=== PATIENT | female | born 1940 | race Caucasian/White ===

== ENCOUNTER 2023-09-12 17:07 | Inpatient (IN) | payer BC, OTHER ==
[~2023-09-12] VITALS: Ht 157.5 cm; Wt 83.9 kg
[2023-09-12] MEDS: IV NS 1000 ML 1,000 ML IV ONE (17:30)
[2023-09-12] MEDS: ONDANSETRON 4 MG/2 ML VIAL IV ONE (17:30)
[2023-09-12 18:29] LABS: BASOPHILS % (AUTO) 0.2 % (0.0-2.0); EOSINOPHILS # (AUTO) 0.3 K/uL (0.0-0.7); EOSINOPHILS % (AUTO) 2.2 % (0.0-7.0); HEMATOCRIT 51.7 % (31.2-41.9); HEMOGLOBIN 16.7 g/dL (10.9-14.3); LYMPHOCYTES # (AUTO) 1.3 K/uL (0.8-4.8); LYMPHOCYTES % (AUTO) 8.5 % (20.5-51.5); MEAN CORPUSCULAR HEMOGLOBIN 29.6 uug (24.7-32.8); MEAN CORPUSCULAR HGB CONC 32 g/dL (32.3-35.6); MEAN CORPUSCULAR VOLUME 91.7 fL (75.5-95.3); MONOCYTES # (AUTO) 1.1 K/uL (0.1-1.30); MONOCYTES % (AUTO) 7.2 % (0.0-11.0); NEUTROPHILS # (AUTO) 12.8 K/uL (1.8-8.9); NEUTROPHILS % (AUTO) 81.9 % (38.5-71.5); PLATELET COUNT (AUTO) 249 K/uL (179-408); RED BLOOD CELL COUNT(AUTO) 5.64 MIL/uL (3.63-4.92); WHITE BLOOD COUNT (AUTO) 15.6 K/uL (3.8-11.8)
[2023-09-12 18:30] LABS: DIFFERENTIAL COMMENT 1
[2023-09-12 18:37] LABS: CALCIUM 9.3 mg/dL (8.5-10.1); CARBON DIOXIDE 24 mmol/L (21-32); CHLORIDE 100 mmol/L (98-107); CREATININE 1.5 mg/dL (0.6-1.3); GLUCOSE 195 mg/dL (74-106); POTASSIUM 5.2 mmol/L (3.5-5.1); SODIUM SERUM 137 mmol/L (136-145); UREA NITROGEN, BLOOD 26 mg/dL (7-18)
[2023-09-12 18:51] LABS: ALANINE AMINOTRANSFERASE 50 U/L (14-59); ALBUMIN 4.3 g/dL (3.4-5.0); ALKALINE PHOSPHATASE 76 U/L (50-136); ASPARTATE AMINOTRANSFERASE 38 U/L (15-37); LIPASE 40 U/L (16-77); NT-PRO BNP 166 pg/mL (0-125); TOTAL PROTEIN, SERUM 9.4 g/dL (6.4-8.2)
[2023-09-12] MEDS ORDERED: ONDANSETRON 4 MG/2 ML VIAL ONE (18:53)
[2023-09-12 19:14] LABS: LACTIC ACID 3.1 mmol/L (0.4-2.0)
[2023-09-12] MEDS ORDERED: IOHEXOL 350 100 ML INFUS..BTL ONE (19:38)
[2023-09-12] MEDS ORDERED: SWABABLE VALVE TRANSFER SET EA MC ONE (19:39)
[2023-09-12] MEDS ORDERED: IV NORMAL SALINE 250 ML IV ONE (19:39)
[2023-09-12] MEDS: LORAZEPAM 2 MG/1 ML VIAL IV ONE (20:29)
[2023-09-12] MEDS: IV NORMAL SALINE 1000 ML BAG IV ONE (21:10)
[2023-09-12] MEDS ORDERED: levoFLOXacin 250MG /D5W 50 ML IV ONE (21:18)
[2023-09-12] MEDS ORDERED: levoFLOXacin 500 MG/D5W 100 ML ONE (21:25)
[2023-09-12] MEDS: levoFLOXacin 750 MG/D5W 150 ML PIGGYBACK IV ONE (21:26)
[2023-09-12] MEDS ORDERED: HYDROCODONE/APAP 5-325MG TABLET PO PRN (22:45)
[2023-09-12] MEDS ORDERED: ACETAMINOPHEN 325 MG TABLET PO PRN (22:45)
[2023-09-12] MEDS ORDERED: ACETAMINOPHEN 650 MG SUPP.RECT RC PRN (22:45)
[2023-09-12] MEDS ORDERED: ONDANSETRON 4 MG/2 ML VIAL IV PRN (22:45)
[2023-09-13] VITALS (8 sets, daily range): BP systolic 110–140; BP diastolic 41–81; TEMP 97.3–98.6; O2SAT 93–98
[2023-09-13] MEDS: IV NS 1000 ML 1,000 ML IV PRN (01:03)
[2023-09-13] MEDS ORDERED: VANCOMYCIN IV 200 ML ONE (01:29)
[2023-09-13] MEDS ORDERED: PIPERACILLIN/TAZOBACTAM/D5W 50 ML IV ONE (01:30)
[2023-09-13] MEDS: PIPERACILLIN SODIUM/TAZOBACTAM 3.375 G in IV DEXTROSE 5% 50 ML IV SCH ×2 (02:15→14:46)
[2023-09-13] MEDS ORDERED: GABA-532 PO (02:44)
[2023-09-13] MEDS: VANCOMYCIN IV 1,000 MG in IV NORMAL SALINE 250 ML IV ONE (03:05)
[2023-09-13] MEDS ORDERED: SIMV-46 PO (03:45)
[2023-09-13] MEDS ORDERED: PRIM50TA27 PO (03:45)
[2023-09-13] MEDS ORDERED: MECL-159 PO (03:45)
[2023-09-13] MEDS ORDERED: LEVO100T10 PO (03:45)
[2023-09-13] MEDS ORDERED: ONDA4TAB5 PO (03:45)
[2023-09-13] MEDS ORDERED: IBUP-1957 PO (03:45)
[2023-09-13] MEDS ORDERED: PROP10TA10 PO (03:45)
[2023-09-13] MEDS ORDERED: LOSA100T31 PO (03:45)
[2023-09-13 08:08] LABS: ALANINE AMINOTRANSFERASE 36 U/L (14-59); ALKALINE PHOSPHATASE 52 U/L (50-136); ASPARTATE AMINOTRANSFERASE 26 U/L (15-37); BILIRUBIN,TOTAL 0.8 mg/dL (0.2-1.0); CALCIUM 7.3 mg/dL (8.5-10.1); CARBON DIOXIDE 21 mmol/L (21-32); CHLORIDE 104 mmol/L (98-107); CHOLESTEROL 116 mg/dL (<200); CREATININE 1.5 mg/dL (0.6-1.3); GLUCOSE 106 mg/dL (74-106); HDL CHOLESTEROL 33 mg/dL (40-60); MAGNESIUM 1.8 mg/dL (1.8-2.4); POTASSIUM 4.3 mmol/L (3.5-5.1); SODIUM SERUM 136 mmol/L (136-145); TRIGLYCERIDES 276 MG/DL (30-150); UREA NITROGEN, BLOOD 29 mg/dL (7-18)
[2023-09-13 08:11] LABS: BASOPHILS % (AUTO) 0.2 % (0.0-2.0); EOSINOPHILS # (AUTO) 0.2 K/uL (0.0-0.7); EOSINOPHILS % (AUTO) 2.5 % (0.0-7.0); HEMATOCRIT 40.3 % (31.2-41.9); LYMPHOCYTES # (AUTO) 2.7 K/uL (0.8-4.8); LYMPHOCYTES % (AUTO) 27.5 % (20.5-51.5); MEAN CORPUSCULAR HEMOGLOBIN 29.7 uug (24.7-32.8); MEAN CORPUSCULAR HGB CONC 32 g/dL (32.3-35.6); MEAN CORPUSCULAR VOLUME 92.3 fL (75.5-95.3); MONOCYTES # (AUTO) 1.1 K/uL (0.1-1.30); MONOCYTES % (AUTO) 11.3 % (0.0-11.0); NEUTROPHILS # (AUTO) 5.7 K/uL (1.8-8.9); NEUTROPHILS % (AUTO) 58.5 % (38.5-71.5); PLATELET COUNT (AUTO) 177 K/uL (179-408); RED BLOOD CELL COUNT(AUTO) 4.37 MIL/uL (3.63-4.92); RED CELL DISTRIBUTION WIDTH 14.1 % (12.3-17.7); WHITE BLOOD COUNT (AUTO) 9.7 K/uL (3.8-11.8)
[2023-09-13 08:16] LABS: IRON, SERUM 66 ug/dL (50-175); THYROID STIMULATING HORMONE 5.435 mIU/mL (0.358-3.740)
[2023-09-13] MEDS: PIPERACILLIN/TAZO 2.25 G in IV DEXTROSE 5% 50 ML IV ONE (08:33)
[2023-09-13] MEDS: ASPIRIN EC 81 MG TABLET.DR PO SCH (08:34)
[2023-09-13] MEDS: PANTOPRAZOLE SODIUM 40 MG VIAL IV SCH (08:34)
[2023-09-13 08:43] LABS: DIFFERENTIAL COMMENT 1
[2023-09-13] MEDS: VANCOMYCIN IV 1,250 MG in IV DEXTROSE 5% 250 ML IV SCH (09:54)
[2023-09-13] MEDS ORDERED: GABA300C PO (09:54)
[2023-09-13] MEDS ORDERED: MECLIZINE HCL 25 MG TABLET PO PRN (12:15)
[2023-09-13] MEDS ORDERED: IBUPROFEN 800 MG TABLET PO PRN (12:15)
[2023-09-13] MEDS: PRIMIDONE 50 MG TABLET PO SCH (12:53)
[2023-09-13] MEDS: PROPRANOLOL HCL 10 MG TABLET PO SCH (12:54)
[2023-09-13] MEDS ORDERED: GABAPENTIN 300 MG CAPSULE PO SCH (13:00)
[2023-09-13 20:51] LABS: *BILIRUBIN,URIN NEGATIVE (NEGATIVE); *BLOOD, URINE NEGATIVE (NEGATIVE); *CLARITY,URINE CLOUDY (CLEAR); *COLOR,URINE YELLOW (YELLOW); *KETONES,URINE NEGATIVE (NEGATIVE); *PROTEIN,URINE NEGATIVE (NEGATIVE); *UROBILINOGEN,URINE 0.2 E.U./dl (NORMAL); LEUKOCYTE ESTERASE ,URINE 1+ (NEGATIVE); NITRITE, URINE NEGATIVE (NEGATIVE); UGLUCOSE NEGATIVE (NEGATIVE)
[2023-09-13] MEDS ORDERED: SIMVASTATIN 20 MG TABLET PO SCH (21:00)
[2023-09-13] MEDS: GABAPENTIN 300 MG CAPSULE PO SCH (21:25)
[2023-09-13 22:46] LABS: BACTERIA,URINE FEW /HPF (NONE SEEN); RBC,URINE 0-3 /HPF (0-3); SQUAMOUS EPITHELIAL CELL,UR MANY /HPF (NONE SEEN); WBC,URINE 20-50 /HPF (0-3)
[2023-09-14] MEDS: LEVOTHYROXINE SODIUM 100 MCG TABLET PO SCH (07:00)
[2023-09-14] MEDS: SIMVASTATIN 20 MG TABLET PO SCH (09:00)
[2023-09-14 09:45] LABS: HEMOGLOBIN 12.7 g/dL (10.9-14.3); RED BLOOD CELL COUNT(AUTO) 4.22 MIL/uL (3.63-4.92); WHITE BLOOD COUNT (AUTO) 6.5 K/uL (3.8-11.8)
[2023-09-14 09:46] LABS: BASOPHILS % (AUTO) 0.5 % (0.0-2.0); EOSINOPHILS # (AUTO) 0.2 K/uL (0.0-0.7); EOSINOPHILS % (AUTO) 3.2 % (0.0-7.0); LYMPHOCYTES # (AUTO) 2.2 K/uL (0.8-4.8); LYMPHOCYTES % (AUTO) 34.4 % (20.5-51.5); MEAN CORPUSCULAR HEMOGLOBIN 30.1 uug (24.7-32.8); MEAN CORPUSCULAR HGB CONC 33 g/dL (32.3-35.6); MEAN CORPUSCULAR VOLUME 92.3 fL (75.5-95.3); MONOCYTES # (AUTO) 0.6 K/uL (0.1-1.30); MONOCYTES % (AUTO) 9.1 % (0.0-11.0); NEUTROPHILS # (AUTO) 3.4 K/uL (1.8-8.9); NEUTROPHILS % (AUTO) 52.8 % (38.5-71.5); PLATELET COUNT (AUTO) 135 K/uL (179-408)
[2023-09-14 12:00] VITALS: BP 125/59; TEMP 97.4; O2SAT 96
[2023-09-14] MEDS ORDERED: LEVOTHYROXINE SODIUM 100 MCG TABLET PO SCH (12:17)
[2023-09-14 13:56] LABS: CALCIUM 7.5 mg/dL (8.5-10.1); CARBON DIOXIDE 23 mmol/L (21-32); CHLORIDE 110 mmol/L (98-107); CREATININE 1.1 mg/dL (0.6-1.3); GLUCOSE 116 mg/dL (74-106); MAGNESIUM 1.8 mg/dL (1.8-2.4); PHOSPHOROUS 3.7 mg/dL (2.5-4.9); POTASSIUM 4.1 mmol/L (3.5-5.1); SODIUM SERUM 143 mmol/L (136-145); UREA NITROGEN, BLOOD 23 mg/dL (7-18)
[2023-09-14 16:00] VITALS: BP 147/76; TEMP 97.1; O2SAT 97
[2023-09-14 19:44] VITALS: BP 166/77; TEMP 98; O2SAT 96
[2023-09-14] MEDS: PIPERACILLIN SODIUM/TAZOBACTAM 3.375 G in IV DEXTROSE 5% 50 ML IV SCH (20:00)
[2023-09-14] MEDS: LOSARTAN POTASSIUM 50 MG TABLET PO SCH (21:18)
[2023-09-15 05:38] VITALS: BP 146/66; TEMP 97.8; O2SAT 96
[2023-09-15] MEDS ORDERED: VANCOMYCIN IV 1,250 MG in IV DEXTROSE 5% 250 ML IV SCH (06:00)
[2023-09-15] MEDS: PANTOPRAZOLE SODIUM 40 MG TABLET.DR PO SCH (06:03)
[2023-09-15 07:50] LABS: CALCIUM 7.8 mg/dL (8.5-10.1); CREATININE 0.8 mg/dL (0.6-1.3); MAGNESIUM 1.9 mg/dL (1.8-2.4); PHOSPHOROUS 3.9 mg/dL (2.5-4.9); POTASSIUM 3.6 mmol/L (3.5-5.1)
[2023-09-15 07:54] LABS: BASOPHILS % (AUTO) 0.5 % (0.0-2.0); EOSINOPHILS # (AUTO) 0.2 K/uL (0.0-0.7); EOSINOPHILS % (AUTO) 3.6 % (0.0-7.0); LYMPHOCYTES # (AUTO) 2.3 K/uL (0.8-4.8); LYMPHOCYTES % (AUTO) 37.5 % (20.5-51.5); MEAN CORPUSCULAR HEMOGLOBIN 30.1 uug (24.7-32.8); MEAN CORPUSCULAR HGB CONC 33 g/dL (32.3-35.6); MEAN CORPUSCULAR VOLUME 90.6 fL (75.5-95.3); MONOCYTES # (AUTO) 0.6 K/uL (0.1-1.30); MONOCYTES % (AUTO) 9.3 % (0.0-11.0); NEUTROPHILS % (AUTO) 49.1 % (38.5-71.5); PLATELET COUNT (AUTO) 133 K/uL (179-408); RED CELL DISTRIBUTION WIDTH 13.5 % (12.3-17.7); WHITE BLOOD COUNT (AUTO) 6.1 K/uL (3.8-11.8)
[2023-09-15 07:58] LABS: DIFFERENTIAL COMMENT 1
[2023-09-15] MEDS: VANCOMYCIN IV 1,250 MG in IV DEXTROSE 5% 250 ML IV SCH (09:00)
[2023-09-15 11:18] VITALS: BP 112/66; TEMP 97.6; O2SAT 100
[2023-09-15 14:00] VITALS: BP 112/66
== END 2023-09-15 14:45 | disposition left against medical advice (07) | DRG 871 ==
LOC: ER 17:09 → TELE3 21:29 → MEDSURG3 09-14 10:20
PROVIDERS: ADMIT Internal Medicine; ATTEND Student in an Organized Health Care Education/Training Program
DX: A41.9 Sepsis, unspecified organism (principal); J15.9 Unspecified bacterial pneumonia; N39.0 Urinary tract infection, site not specified; E44.1 Mild protein-calorie malnutrition; N17.9 Acute kidney failure, unspecified; E86.0 Dehydration; Z68.33 Body mass index [BMI] 33.0-33.9, adult; E78.5 Hyperlipidemia, unspecified; E03.9 Hypothyroidism, unspecified; Z79.890 Hormone replacement therapy; K76.0 Fatty (change of) liver, not elsewhere classified; G20.A1 Parkinson's disease without dyskinesia, without mention of fluctuations; G25.0 Essential tremor; Z91.048 Other nonmedicinal substance allergy status; E87.5 Hyperkalemia; I10 Essential (primary) hypertension; R11.2 Nausea with vomiting, unspecified
CPT/HCPCS: 36415; 71045; 83550; 83605; 83690; 83735; 84100; 84443; 84484; 85025; 85610; 93005; G0378; J1956; J2405; J2470; J2543; J3370; J7040; J7050; Q9967